=== PATIENT | female | born 1940 | race Caucasian/White ===

== ENCOUNTER 2022-10-01 16:12 | Outpatient (OUT) | payer MEDICARE, OTHER, SELFPAY ==
[2022-10-01 16:39] LABS: Basophils Percent Auto 0.6 % (0.2-2.0); Eosinophils Percent Auto 0.6 % (0.9-7.0); Hematocrit 33.5 % (36.0-48.0); Hemoglobin 10.8 g/dL (12.0-16.0); Immature Granulocytes Abs Auto 0.01 10^3/uL (0.00-0.03); Immature Granulocytes Pct Auto 0.3 % (0.0-0.5); Lymphocytes Absolute Auto 1.1 10^3/uL (1.2-3.8); Lymphocytes Percent Auto 30.3 % (20.5-60.0); Mean Corpuscular HGB Conc 32.2 g/dL (29.9-35.2); Mean Corpuscular Hemoglobin 30.7 pg (26.7-34.0); Mean Corpuscular Volume 95.2 fL (81.0-99.0); Mean Platelet Volume 10.1 fL (9.5-13.5); Monocytes Absolute Auto 0.3 10^3/uL (0.3-0.8); Monocytes Percent Auto 8.4 % (1.7-12.0); Neutrophils Absolute Auto 2.1 10^3/uL (1.4-6.5); Neutrophils Percent Auto 59.8 % (43.0-75.0); Platelet Count 123 10^3/uL (150-450); Red Blood Count 3.52 10^6/uL (4.20-5.40); Red Cell Distribution Width 11.8 % (11.0-15.0); White Blood Count 3.6 10^3/uL (4.0-11.0)
[2022-10-01 16:52] LABS: Estimated GFR (African America 53 (>=60); Estimated GFR (Non-African Ame 44 (>=60)
[2022-10-01 16:57] LABS: Erythrocyte Sedimentation Rate 14 mm/hr (<=30)
[2022-10-01 17:03] LABS: Bilirubin Urine NEGATIVE (NEGATIVE); Blood Urine NEGATIVE (NEGATIVE); Clarity Urine CLEAR (CLEAR); Color Urine YELLOW (YELLOW); Glucose Urine UA NEGATIVE (NEGATIVE); Ketones Urine NEGATIVE (NEGATIVE); Leukocyte Esterase Urine NEGATIVE (NEGATIVE); Nitrite Urine NEGATIVE (NEGATIVE); Protein Urine NEGATIVE (NEG/TRACE); Specific Gravity Urine 1.015 (1.005-1.025); Urobilinogen Urine 0.2 EU/dL (0.2-1.0); pH Urine 6.5 (5.0-9.0)
[2022-10-01 17:23] LABS: Bacteria Urine NONE SEEN #/HPF (NONE SEEN); Cast Seen? NONE SEEN #/LPF (NONE SEEN); Crystals Seen? None Seen #/HPF (None Seen); Mucus Urine NONE SEEN (NONE SEEN); RBC Urine NONE SEEN #/HPF (0-2); Squamous Epithelial Cell Urine FEW #/LPF (NONE/RARE); Urine Culture Indicated NO; WBC Urine NONE SEEN #/HPF (NONE SEEN)
== END 2022-10-01 16:13 | disposition home or self-care (01) ==
LOC: LAB 16:18
PROVIDERS: PCP Family Medicine
DX: R76.0 Raised antibody titer (principal); R63.4 Abnormal weight loss
CPT/HCPCS: 36415; 81001; 82565; 85025; 85652

== ENCOUNTER 2023-01-05 15:47 | Outpatient (OUT) | payer MEDICARE, OTHER, SELFPAY ==
[2023-01-05 16:18] LABS: Bilirubin Urine NEGATIVE (NEGATIVE); Blood Urine NEGATIVE (NEGATIVE); Clarity Urine CLEAR (CLEAR); Color Urine LT. YELLOW (YELLOW); Glucose Urine UA NEGATIVE (NEGATIVE); Ketones Urine NEGATIVE (NEGATIVE); Leukocyte Esterase Urine NEGATIVE (NEGATIVE); Nitrite Urine NEGATIVE (NEGATIVE); Protein Urine NEGATIVE (NEG/TRACE); Urobilinogen Urine 0.2 EU/dL (0.2-1.0)
[2023-01-05 16:20] LABS: Basophils Percent Auto 0.7 % (0.2-2.0); Eosinophils Percent Auto 0.9 % (0.9-7.0); Hematocrit 35.4 % (36.0-48.0); Hemoglobin 11.6 g/dL (12.0-16.0); Immature Granulocytes Abs Auto 0.01 10^3/uL (0.00-0.03); Immature Granulocytes Pct Auto 0.2 % (0.0-0.5); Lymphocytes Absolute Auto 1.3 10^3/uL (1.2-3.8); Lymphocytes Percent Auto 28.8 % (20.5-60.0); Mean Corpuscular HGB Conc 32.8 g/dL (29.9-35.2); Mean Corpuscular Hemoglobin 31.2 pg (26.7-34.0); Mean Corpuscular Volume 95.2 fL (81.0-99.0); Mean Platelet Volume 10.1 fL (9.5-13.5); Monocytes Absolute Auto 0.3 10^3/uL (0.3-0.8); Monocytes Percent Auto 6.5 % (1.7-12.0); Neutrophils Absolute Auto 2.7 10^3/uL (1.4-6.5); Neutrophils Percent Auto 62.9 % (43.0-75.0); Platelet Count 137 10^3/uL (150-450); Red Blood Count 3.72 10^6/uL (4.20-5.40); Red Cell Distribution Width 11.7 % (11.0-15.0); White Blood Count 4.3 10^3/uL (4.0-11.0)
[2023-01-05 16:21] LABS: Erythrocyte Sedimentation Rate 9 mm/hr (<=30)
[2023-01-05 16:24] LABS: Bacteria Urine NONE SEEN #/HPF (NONE SEEN); Mucus Urine NONE SEEN (NONE SEEN); RBC Urine 0-2 #/HPF (0-2); WBC Urine NONE SEEN #/HPF (NONE SEEN)
[2023-01-05 16:25] LABS: Cast Seen? NONE SEEN #/LPF (NONE SEEN); Crystals Seen? None Seen #/HPF (None Seen); Squamous Epithelial Cell Urine NONE SEEN #/LPF (NONE/RARE); Urine Culture Indicated NO
[2023-01-05 16:41] LABS: Estimated GFR (African America 60 (>=60); Estimated GFR (Non-African Ame 49 (>=60)
== END 2023-01-05 15:48 | disposition home or self-care (01) ==
LOC: LAB 15:49
PROVIDERS: PCP Family Medicine; Visit Provider Internal Medicine Rheumatology
DX: R76.0 Raised antibody titer (principal); R63.4 Abnormal weight loss
CPT/HCPCS: 36415; 81001; 82565; 85025; 85652

== ENCOUNTER 2023-04-08 14:25 | Outpatient (OUT) | payer MEDICARE, OTHER, SELFPAY ==
[2023-04-08 14:53] LABS: Basophils Percent Auto 0.7 % (0.2-2.0); Eosinophils Percent Auto 0.9 % (0.9-7.0); Hematocrit 35.6 % (36.0-48.0); Hemoglobin 11.8 g/dL (12.0-16.0); Immature Granulocytes Abs Auto 0.01 10^3/uL (0.00-0.03); Immature Granulocytes Pct Auto 0.2 % (0.0-0.5); Lymphocytes Absolute Auto 1.2 10^3/uL (1.2-3.8); Lymphocytes Percent Auto 27.8 % (20.5-60.0); Mean Corpuscular HGB Conc 33.1 g/dL (29.9-35.2); Mean Corpuscular Volume 93.4 fL (81.0-99.0); Mean Platelet Volume 9.3 fL (9.5-13.5); Monocytes Absolute Auto 0.3 10^3/uL (0.3-0.8); Monocytes Percent Auto 5.8 % (1.7-12.0); Neutrophils Absolute Auto 2.8 10^3/uL (1.4-6.5); Neutrophils Percent Auto 64.6 % (43.0-75.0); Platelet Count 151 10^3/uL (150-450); Red Blood Count 3.81 10^6/uL (4.20-5.40); Red Cell Distribution Width 11.7 % (11.0-15.0); White Blood Count 4.3 10^3/uL (4.0-11.0)
[2023-04-08 14:59] LABS: Erythrocyte Sedimentation Rate 26 mm/hr (<=30)
[2023-04-08 15:53] LABS: Alanine Aminotransferase 25 U/L (14-59); Albumin Level 3.6 g/dL (3.4-5.0); Alkaline Phosphatase 91 U/L (46-116); Aspartate Amino Transferase 20 U/L (15-37); Bilirubin Direct 0.1 mg/dL (0.0-0.2); Bilirubin Total 0.4 mg/dL (0.2-1.0); Estimated GFR (African America 53 (>=60); Estimated GFR (Non-African Ame 44 (>=60); Globulin 3.7 g/dL; Total Protein 7.3 g/dL (6.4-8.2)
== END 2023-04-08 14:26 | disposition home or self-care (01) ==
LOC: LAB 14:28
PROVIDERS: PCP Family Medicine; Visit Provider Internal Medicine Rheumatology
DX: Z79.899 Other long term (current) drug therapy (principal); M06.4 Inflammatory polyarthropathy; M31.30 Wegener's granulomatosis without renal involvement; R76.0 Raised antibody titer
CPT/HCPCS: 36415; 80076; 82565; 85025; 85652

== ENCOUNTER 2023-08-12 15:46 | Outpatient (OUT) | payer MEDICARE, OTHER, SELFPAY ==
--- OUTSIDE RECORDS SUMMARY | 2023-08-12 16:03 | XMS_ITS | CCD ---
Author Organization [facility] Care Team Providers Care Supply Chain Intern Name Role Phone EWDIN, DR FRANK Admitting Unavailable HALADAY, DR FRANK Attending Unavailable NADERER, DR TYLER Marinelli Primary Care Unavailable HALADAY, DR FRANK Consulting Unavailable HALADAY, DR FRANK Admitting Unavailable HALADAY, DR FRANK Attending Unavailable NADERER, DR TYLER Marinelli Primary Care Unavailable HALADAY, DR FRANK Consulting Unavailable HALADAY, DR FRANK Admitting Unavailable HALADAY, DR FRANK Attending Unavailable NADERER, DR TYLER Marinelli Primary Care Unavailable HALADAY, DR FRANK Consulting Unavailable HALADAY, DR FRANK Admitting Unavailable HALADAY, DR FRANK Attending Unavailable NADERER, DR TYLER Marinelli Primary Care Unavailable HALADAY, DR FRANK Consulting Unavailable HALADAY, DR FRANK Admitting Unavailable HALADAY, DR FRANK Attending Unavailable NADERER, DR TYLER Marinelli Primary Care Unavailable HALADAY, DR FRANK Consulting Unavailable HALADAY, DR FRANK Admitting Unavailable HALADAY, DR FRANK Attending Unavailable NADERER, DR TYLER Marinelli Primary Care Unavailable HALADAY, DR FRANK Consulting Unavailable NADERER, DR TYLER Marinelli Admitting Unavailable NADERER, DR TYLER Marinelli Attending Unavailable NADERER, DR TYLER Marinelli Primary Care Unavailable NADERER, DR TYLER Marinelli Consulting Unavailable MD Tyler Velazquez Primary Care Provider [phone] MD Monika Pineda Attending Provider TYLER VELAZQUEZ Attending Unavailable MD Tyler Velazquez Primary Care Provider [phone] MD Monika Pineda Attending Provider [phone] Tyler Velazquez Primary Care Unavailable Edwin, Monika Attending Unavailable Haladaiker, Monika Admitting Unavailable Haladay, Monika Attending Unavailable Haladay, Monika Admitting Unavailable NadTyler tavares Primary Care Unavailable Problems Active Problems Problem Classification Problem Date Documented Date Episodic/Chronic Deficiency and other anemia (1 source) Other pancytopenia; Translations: [Other pancytopenia] Onset: 10-15-2022 Chronic Immunizations and screening for infectious disease (4 sources) Raised antibody titer; Translations: [RAISED ANTIBODY TITER] Onset: 07-02-2022 Episodic Nutritional deficiencies (1 source) Vitamin D deficiency, unspecified; Translations: [VITAMIN D DEFICIENCY UNSPECIFIED] Onset: 08-21-2021 Chronic Other aftercare (5 sources) Other petroleum terminal plant operator (current) drug therapy; 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] Onset: 08-18-2021 Episodic Other circulatory disease (4 sources) Arteritis, unspecified; Translations: [ARTERITIS UNSPECIFIED] Onset: 12-12-2021 Chronic Other nutritional; endocrine; and metabolic disorders (1 source) Abnormal weight loss; Translations: [ABNORMAL WEIGHT LOSS] Onset: 07-11-2022 Episodic Rheumatoid arthritis and related disease (5 sources) Inflammatory polyarthropathy; Translations: [INFLAMMATORY POLYARTHROPATHY] Onset: 04-02-2022 Chronic Systemic lupus erythematosus and connective tissue disorders (2 sources) 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; Translations: [WEGENERS GRANULOMATOSIS W/O RENL] Onset: 07-11-2022 Chronic Past or Other Problems Problem Classification Problem Date Documented Da te Episodic/Chronic Other screening for suspected conditions (not mental disorders or infectious disease) (1 source) Encounter for screening for lipoid disorders; Translations: [ENC SCREENING FOR LIPOID DISORDERS] Onset: 08-21-2021 Episodic Results Test Name Value Interpretation Reference Range Facility Automated erythrocytes count in urine sediment (number/area)Ordered By: Monika Pineda on 05-12-2023 RBC Auto (Urine sed) [#/Area] 0-1 [HPF] 0-4 [facility] Automated leukocytes count i n urine sediment (number/area)Ordered By: Monika Pineda on 05-12-2023 WBC Auto (Urine sed) [#/Area] None seen [HPF] 0-4 [facility] Bilirubin Test strip Ql (U)O rdered By: Monika Pineda on 05-12-2023 Bilirubin Ql (U) Negative Negative [facility] Color Auto (U)Ordered By: Amalia Pineda on 05-12-2023 Color (U) Yellow Yellow [facility] Dipstick and Microscopicon 0 05-12-2023 Appearance (U) Clear Normal Clear [facility] Comment on above: Order Comment: Name Collection Type:: Clean-Voided Midstream Performed By: #### A DDONUAPLUS #### [facility] [address] [id number] [place] Bacteria,Urine None Seen Normal None Seen [facility] Comment on above: Order Comment: Name Collection Type:: Clean-Voided Midstream Performed By: #### A DDONUAPLUS #### [facility] [address] [place] [address] [place] Bilirubin,Urine Negative Normal Negative [facility] Comment on above: Order Comment: Name Collection Type:: Clean-Voided Midstream Performed By: #### A DDONUAPLUS #### [place] [address] [place] Color (U) Yellow Normal [facility] Comment on above: Order Comment: Name Collection Type:: Clean-Voided Midstream Performed By: #### A DDONUAPLUS #### [facility] [address] [place] [address] [place] Glucose Ql (U) Normal Normal Normal [facility] Comment on above: Order Comment: Name Collection Type:: Clean-Voided Midstream Performed By: #### A DDONUAPLUS #### [place] [address] [place] Hyaline Casts,Urine None Seen Normal 0-8 [facility] Comment on above: Order Comment: Name Collection Type:: Clean-Voided Midstream Result Comment: PERF ORMED BY: [place] [address] PATHOLOGIST CLIENT EXPERIENCE CONSULTANT CHEMA DANIELLE M.D. Performed By: #### A DDONUAPLUS #### [facility] [address] [place] [address] [place] Ketones Ql (U) Negative Normal Negative [facility] Comment on above: Order Comment: Name Collection Type:: Clean-Voided Midstream Performed By: #### A DDONUAPLUS #### [facility] [address] [place] [address] Leukocyte esterase Test strip Ql (U) Negative Normal Negative [facility] Comment on above: Order Comment: Name Collection Type:: Clean-Voided Midstream Performed By: #### A DDONUAPLUS #### [address] Nitrite,Urine Negative Normal Negative [facility] Comment on above: Order Comment: Name Collection Type:: Clean-Voided Midstream Performed By: #### A DDONUAPLUS #### [address] Occult Blood,Urine Negative Normal Negative [facility] Comment on above: Order Comment: Name Collection Type:: Clean-Voided Midstream Performed By: #### A DDONUAPLUS #### [address] pH (U) 7.5 [pH] Normal 5.0-9.0 [facility] Comment on above: Order Comment: Name Collection Type:: Clean-Voided Midstream Performed By: #### A DDONUAPLUS #### [address] Protein,Urine Negative Normal Negative [facility] Comment on above: Order Comment: Name Collection Type:: Clean-Voided Midstream Performed By: #### A DDONUAPLUS #### [facility] [address] [place] [address] RBC LM.HPF (Urine sed) [#/Area] 0 /[HPF] Normal 0-4 [facility] Comment on above: Order Comment: Name Collection Type:: Clean-Voided Midstream Performed By: #### A DDONUAPLUS #### [facility] [address] [place] [address] [place] Specificy [place],Urine 1.013 Normal 1.001-1.030 [facility] Comment on above: Order Comment: Name Collection Type:: Clean-Voided Midstream Performed By: #### A DDONUAPLUS #### [address] Squamous Epithelial Cell,Urine None Seen Normal 0-2 [facility] Comment on above: Order Comment: Name Collection Type:: Clean-Voided Midstream Performed By: #### A DDONUAPLUS #### [facility] [address] Urobilinogen,Urine Normal Normal Normal [facility] Comment on above: Order Comment: Name Collection Type:: Clean-Voided Midstream Performed By: #### A DDONUAPLUS #### [facility] [address] WBC,Urine None Seen Normal 0-4 [facility] Comment on above: Order Comment: Name Collection Type:: Clean-Voided Midstream Performed By: #### A DDONUAPLUS #### [facility] [address] Ketones Auto test strip (U) [Mass/Vol]Ordered By: Monika Pineda on 05-12-2023 Ketones (U) [Mass/Vol] Negative Negative [facility] - UrinalysisOrder ed By: Monika Pineda on 05-12-2023 Hyaline casts LM Ql (Urine sed) None seen [LPF] 0-8 [facility] Nitrite Test strip Ql (U)Ord ered By: Monika Pineda on 05-12-2023 Nitrite Ql (U) Negative Negative [facility] Protein Auto test strip (U) [Mass/Vol]Ordered By: Monika Pineda on 05-12-2023 Protein (U) [Mass/Vol] Negative Negative [facility] Specific gravity Auto test s trip (U) [Rel density]Ordered By: Monika Pineda on 05-12-2023 Specific gravity (U) [Rel density] 1.013 1.001-1.030 [facility] Squamous epithelial cells de tection in urine sediment by light microscopyOrdered By: Monika Pineda on 05-12-2023 Epithelial cells.squamous LM Ql (Urine sed) None seen [HPF] 0-2 [facility] Urine bacteria detection by automated methodOrdered By: Monika Pineda on 05-12-2023 Bacteria Auto Ql (U) None seen None Seen [facility] Urine clarity by refractomet ry automatedOrdered By: Monika Pineda on 05-12-2023 Clarity Refractometry automated (U) Clear Clear [facility] Urine glucose measurement by automated test strip (mass/volume)Ordered By: Monika Pnieda on 05-12-2023 Glucose Auto test strip (U) [Mass/Vol] Normal mg/dL Normal [facility] Urine hemoglobin detection b y automated test stripOrdered By: Monika Pineda on 05-12-2023 Hemoglobin Auto test strip Ql (U) Negative Negative [facility] Urine leukocyte esterase det ection by automated test stripOrdered By: Monika Pineda on 05-12-2023 Leukocyte esterase Auto test strip Ql (U) Negative Negative [facility] Urobilinogen Auto test strip (U) [Mass/Vol]Ordered By: Monika Pineda on 05-12-2023 Urobilinogen (U) [Mass/Vol] Normal mg/dL Normal [facility] pH Auto test strip (U)Ordere d By: Monika Pineda on 05-12-2023 pH (U) 7.5 [pH] 5.0-9.0 [facility] XIOMARA Antinuclear Antibodieson 10-15-2022 Antinuclear Abs, IFA Negative Normal . [facility] Comment on above: Result Comment: Nega tive <1:80 Borderline 1:80 Positive >1:80 ICAP nomenclature: AC-0 For more information about Hep-2 cell patterns use ANApatterns.org, the official website for the International Consensus on Antinuclear Antibody (XIOMARA) Patterns (ICAP). Performed at: [employer] [id number] [employer] Mixer: Carloz Juárez PhD, Phone: [phone] Performed By: #### A DNA, XIOMARA #### [facility] , Anti-dsDNA(DBL)Abon 10-16-19 Anti-dsDNA(DBL)Ab 3 Normal 0-9 [facility] Comment on above: Result Comment: Nega tive <5 Equivocal 5 - 9 Positive >9 Performed at: [facility] [employer] [id number] [employer]er: Carloz Juárez PhD, Phone: [phone] PERFORMED BY: [address] [address] PATHOLOGIST CLIENT EXPERIENCE CONSULTANT CHEMA DANIELLE M.D. Performed By: #### A DNA, XIOMARA #### [facility] , Lupus Anticoagulant Compon 0 10-15-2022 Dilute Prothrombin Time (dPt) 31.2 Normal 0.0-47.6 [facility] Comment on above: Performed By: #### L UPANTCOAG #### [facility] , dPT Confirm Ratio 0.95 Normal 0.00-1.34 [facility] Comment on above: Performed By: #### L UPANTCOAG #### [facility] , DRVVT Lupus 31.3 Normal 0.0-47.0 [facility] Comment on above: Performed By: #### L UPANTCOAG #### [facility] , Interpretation Comment: Normal . [facility] Comment on above: Result Comment: No l upus anticoagulant was detected. Performed at: - [facility] [id number] [employer]: Marlen Cameron MD, Phone: [phone] PERFORMED BY: [address] [address] PATHOLOGIST CLIENT EXPERIENCE CONSULTANT CHEMA DANIELLE M.D. Performed By: #### L UPANTCOAG #### [facility] , PTT-LA 31.4 Normal 0.0-43.5 [facility] Comment on above: Performed By: #### L UPANTCOAG #### [facility] , Thrombin Time 17.2 Normal 0.0-23.0 [facility] Comment on above: Performed By: #### L UPANTCOAG #### [facility] , CBC AUTO DIFFon 07-02-2022 BASO # 0.0 103/ul Normal 0.0-0.1 [facility] Comment on above: Performed By: #### C BC #### [facility] [address] [place] [address] Dr. Sharon Reed Basophils/100 WBC (Bld) 0.5 % Normal 0.2-2.0 [facility] Comment on above: Performed By: #### C BC #### [facility] [address] [place] [address] Dr. Sharon Reed EO # 0.0 103/ul Normal 0.0-0.7 [facility] Comment on above: Performed By: #### C BC #### [facility] [address] [place] [address] Dr. Sharon Reed Eosinophils/100 WBC (Bld) 0.7 % Critically low 0.9-7.0 [facility] Comment on above: Performed By: #### C BC #### [facility] [address] [place] [address] Dr. Sharon Reed Erythrocyte distribution width (RBC) [Ratio] 11.4 % Normal 11.0-15.0 [facility] Comment on above: Performed By: #### C BC #### [facility] [address] [place] [address] Dr. Sharon Reed Hematocrit (Bld) [Volume fraction] 35.8 % Critically low 36.0-48.0 [facility] Comment on above: Performed By: #### C BC #### [facility] [address] [place] [address] Dr. Sharon Reed Hemoglobin (Bld) [Mass/Vol] 12.1 g/dL Normal 12.0-16.0 [facility] Comment on above: Performed By: #### C BC #### [facility] [address] [place] [address] Dr. Sharon Reed IG # 0.01 10e3/ul Normal 0.00-0.03 [facility] Comment on above: Performed By: #### C BC #### [facility] [address] [place] [address] Dr. Sharon Reed IG % 0.2 % Normal 0.0-0.5 [facility] Comment on above: Performed By: #### C BC #### [facility] [address] [place] [address] Dr. Sharon Reed LYMPH # 1.2 103/ul Normal 1.2-3.8 [facility] Comment on above: Performed By: #### C BC #### [facility] [address] [place] [address] Dr. Sharon Reed Lymphocytes/100 WBC (Bld) 29.4 % Normal 20.5-60.0 [facility] Comment on above: Performed By: #### C BC #### [facility] [address] [place] [address] Dr. Sharon Reed MANUAL DIFF REQ NO Normal [facility] Comment on above: Performed By: #### C BC #### [facility] [address] [place] [address] Dr. Sharon Reed MCH (RBC) [Entitic mass] 31.1 pg Normal 26.7-34.0 [facility] Comment on above: Performed By: #### C BC #### [facility] [address] [place] [address] Dr. Sharon Reed MCHC (RBC) [Mass/Vol] 33.8 g/dL Normal 29.9-35.2 [facility] Comment on above: Performed By: #### C BC #### [facility] [address] [place] [address] Dr. Sharon Reed MCV (RBC) [Entitic vol] 92.0 fL Normal 81.0-99.0 [facility] Comment on above: Performed By: #### C BC #### [facility] [address] [place] [address] Dr. Sharno Reed MONO # 0.3 103/ul Normal 0.3-0.8 [facility] Comment on above: Performed By: #### C BC #### [facility] [address] [place] [address] Dr. Sharon Reed Monocytes/100 WBC (Bld) 6.6 % Normal 1.7-12.0 [facility] Comment on above: Performed By: #### C BC #### [facility] [address] [address] [address] Sharon Reed NEUT # 2.6 103/ul Normal 1.4-6.5 [facility] Comment on above: Performed By: #### C BC #### [facility] [address] [place] [address] Dr. Sharon Reed Neutrophils/100 WBC (Bld) 62.6 % Normal 43.0-75.0 [facility] Comment on above: Performed By: #### C BC #### [facility] [address] [place] [address] Dr. Sharon Reed Platelet mean volume (Bld) [Entitic vol] 9.7 fL Normal 9.5-13.5 [facility] Comment on above: Performed By: #### C BC #### [facility] [address] [place] [address] Dr. Sharon Reed PLT 128 103/ul Critically low 150-450 [facility] Comment on above: Performed By: #### C BC #### [facility] [address] [place] [address] Dr. Sharon Reed RBC 3.89 106/ul Critically low 4.20-5.[address] [facility] Comment on above: Performed By: #### C BC #### [facility] [address] [place] [address] Dr. Sharon Reed WBC 4.1 103/ul Normal 4.0-11.0 [facility] Comment on above: Performed By: #### C BC #### [facility] [address] [place] [address] Dr. Sharon Reed CREATININEon 07-02-2022 Creatinine [Mass/Vol] 1.00 mg/dL Normal 0.55-1.02 [facility] Comment on above: Performed By: #### C MITRA #### [facility] [address] [place] [address] Dr. Sharon Reed EGFR-AF SAO TOMEAN >60 Normal >=60 [facility] Comment on above: Performed By: #### C MITRA #### [facility] [address] [place] [address] Dr. Sharon Reed EGFR-NON AF SAO TOMEAN 53 mL/min/1.73m2 Critically low >=60 [facility] Comment on above: Performed By: #### C MITRA #### [facility] [address] [place] [address] Dr. Sharon Reed SED RATE WESTERGRENon 2022 SED RATE 11 mm/hr Normal <=30 [facility] Comment on above: Performed By: #### S EDR #### [facility] [address] [place] [address] Dr. Sharon Reed UA RANDOM W/MICROSCOPICon BACTERIA NONE SEEN Normal NONE SEEN [facility] Comment on above: Performed By: #### S EDR #### [facility] [address] [place] [address] Dr. Sharon Reed Bilirubin Ql (U) Negative Normal NEGATIVE [facility] Comment on above: Performed By: #### S EDR #### [facility] [address] [place] [address] Dr. Sharon Reed CAST NONE SEEN Normal NONE SEEN [facility] Comment on above: Performed By: #### S EDR #### [facility] [address] [place] [address] Dr. Sharon Reed Clarity (U) CLEAR Normal CLEAR [facility] Comment on above: Performed By: #### S EDR #### [facility] [address] [place] [address] Dr. Sharon Reed Color (U) LT. YELLOW Normal YELLOW [facility] Comment on above: Performed By: #### S EDR #### [facility] [address] [place] [address] Dr. Sharon Reed Crystals LM Nom (Urine sed) NONE SEEN Normal NONE SEEN [facility] Comment on above: Performed By: #### S EDR #### [facility] [address] [place] [address] Dr. Sharon Reed Epithelial cells LM Ql (Urine sed) NONE SEEN Normal NONE SEEN /RARE [facility] Comment on above: Performed By: #### S EDR #### [facility] [address] [address] [address] Sharon Reed Glucose Ql (U) Negative Normal NEGATIVE [facility] Comment on above: Performed By: #### S EDR #### [facility] [address] [address] [address] Sharon Reed Hemoglobin Ql (U) Negative Normal NEGATIVE [facility] Comment on above: Performed By: #### S EDR #### [facility] [address] [address] [address] Sharon Reed Ketones Ql (U) Negative Normal NEGATIVE [facility] Comment on above: Performed By: #### S EDR #### [facility] [address] [place] [address] Dr. Sharon Reed LEUKOCYTES Negative Normal NEGATIVE [facility] Comment on above: Performed By: #### S EDR #### [facility] [address] [place] [address] Dr. Sharon Reed MUCOUS NONE SEEN Normal NONE SEEN [facility] Comment on above: Performed By: #### S EDR #### [facility] [address] [place] [address] Dr. Sharon Reed Nitrite Ql (U) Negative Normal NEGATIVE [facility] Comment on above: Performed By: #### S EDR #### [facility] [address] [place] [address] Dr. Sharon Reed pH (U) 7.5 [pH] Normal 5-9 [facility] Comment on above: Performed By: #### S EDR #### [facility] [address] [place] [address] Dr. Sharon Reed RBC 0-2 Normal 0-2 [facility] Comment on above: Performed By: #### S EDR #### [facility] [address] [place] [address] Dr. Sharon Reed SPEC GRAVITY <=1.005 Abnormal 1.005-<=1.025 [facility] Comment on above: Performed By: #### S EDR #### [facility] [address] [place] [address] Dr. Sharon Reed UA PROTEIN Negative Normal NEGATIVE/ TRACE [facility] Comment on above: Performed By: #### S EDR #### [facility] [address] [place] [address] Dr. Sharon Reed Urobilinogen Qn (U) 0.2 {Jayla'U}/dL Normal 0.2 - 1. 0 [facility] Comment on above: Performed By: #### S EDR #### [facility] [address] [place] [address] Dr. Sharon Reed WBC NONE SEEN Normal NONE SEEN [facility] Comment on above: Performed By: #### S EDR #### [facility] [address] [place] [address] Dr. Sharon Reed CREATININEon 04-02-2022 Creatinine [Mass/Vol] 1.14 mg/dL Critically high 0.55-1.02 [facility] Comment on above: Performed By: #### C MITRA #### [facility] [address] [place] [address] Dr. Sharon Reed EGFR-AF SAO TOMEAN 56 mL/min/1.73m2 Critically low >=60 [facility] Comment on above: Performed By: #### C MITRA #### [facility] [address] [place] [address] Dr. Sharon Reed EGFR-NON AF SAO TOMEAN 46 mL/min/1.73m2 Critically low >=60 [facility] Comment on above: Performed By: #### C MITRA #### [facility] [address] [place] [address] Dr. Sharon Reed SED RATE WESTERGRENon 2022 SED RATE 12 mm/hr Normal <=30 [facility] Comment on above: Performed By: #### C MITRA #### [facility] [address] [place] [address] Dr. Sharon Reed UA RANDOMon 04-02-2022 Bilirubin Ql (U) Negative Normal NEGATIVE [facility] Comment on above: Performed By: #### C MITRA #### [facility] [address] [place] [address] Dr. Sharon Reed Clarity (U) CLEAR Normal CLEAR [facility] Comment on above: Performed By: #### C MITRA #### [facility] [address] [address] [address] Sharon Reed Color (U) LT. YELLOW Normal YELLOW [facility] Comment on above: Performed By: #### C MITRA #### [facility] [address] [place] [address] Dr. Sharon Reed Glucose Ql (U) Negative Normal NEGATIVE [facility] Comment on above: Performed By: #### C MITRA #### [facility] [address] [place] [address] Dr. Sharon Reed Hemoglobin Ql (U) Negative Normal NEGATIVE [facility] Comment on above: Performed By: #### C MITRA #### [facility] [address] [place] [address] Dr. Sharon Reed Ketones Ql (U) Negative Normal NEGATIVE [facility] Comment on above: Performed By: #### C MITRA #### [facility] [address] [place] [address] Dr. Sharon Reed LEUKOCYTES Negative Normal NEGATIVE [facility] Comment on above: Performed By: #### C MITRA #### [facility] [address] [place] [address] Dr. Sharon Reed Nitrite Ql (U) Negative Normal NEGATIVE [facility] Comment on above: Performed By: #### C MITRA #### [facility] [address] [place], [place] [address] Dr. Sharon Reed pH (U) 7.0 [pH] Normal 5-9 [facility] Comment on above: Performed By: #### C MITRA #### [facility] [address] [place] [address] Dr. Sharon Reed SPEC GRAVITY 1.010 Normal 1.005-<=1.025 [facility] Comment on above: Performed By: #### C MITRA #### [facility] [address] [place] [address] Dr. Sharon Reed UA PROTEIN Negative Normal NEGATIVE/ TRACE [facility] Comment on above: Performed By: #### C MITRA #### [facility] [address] [place] [address] Dr. Sharon Reed Urobilinogen Qn (U) 0.2 {Jayla'U}/dL Normal 0.2 - 1. 0 [facility] Comment on above: Performed By: #### C MITRA #### [facility] [address] [place] [address] Dr. Sharon Reed CREATININEon 02-05-2022 Creatinine [Mass/Vol] 1.07 mg/dL Critically high 0.55-1.02 [facility] Comment on above: Performed By: #### C MITRA #### [facility] [address] [place] [address] Dr. Sharon Reed EGFR-AF SAO TOMEAN 60 mL/min/1.73m2 Normal >=60 [facility] Comment on above: Performed By: #### C MITRA #### [facility] [address] [place] [address] Dr. Sharon Reed EGFR-NON AF SAO TOMEAN 49 mL/min/1.73m2 Critically low >=60 [facility] Comment on above: Performed By: #### C MITRA #### [facility] [address] [place] [address] Dr. Sharon Reed [facility] 11 mm/hr Normal <=30 [facility] Comment on above: Performed By: #### S EDR #### [facility] [address] [place] [address] Dr. Sharon Reed UA RANDOMon 02-05-2022 Bilirubin Ql (U) Negative Normal NEGATIVE [facility] Comment on above: Performed By: #### S EDR #### [facility] [address] [place] [address] Dr. Sharon Reed Clarity (U) CLEAR Normal CLEAR [facility] Comment on above: Performed By: #### S EDR #### [facility] [address] [place] [address] Dr. Sharon Reed Color (U) YELLOW Normal YELLOW [facility] Comment on above: Performed By: #### S EDR #### [facility] [address] [address] [address] Sharon Reed Glucose Ql (U) Negative Normal NEGATIVE [facility] Comment on above: Performed By: #### S EDR #### [facility] [address] [address] [address] Sharon Reed Hemoglobin Ql (U) Negative Normal NEGATIVE [facility] Comment on above: Performed By: #### S EDR #### [facility] [address] [address] [address] Sharon Reed Ketones Ql (U) Negative Normal NEGATIVE [facility] Comment on above: Performed By: #### S EDR #### [facility] [address] [place] [address] Dr. Sharon Reed LEUKOCYTES Negative Normal NEGATIVE [facility] Comment on above: Performed By: #### S EDR #### [facility] [address] [place] [address] Dr. Sharon Reed Nitrite Ql (U) Negative Normal NEGATIVE [facility] Comment on above: Performed By: #### S EDR #### [facility] [address] [address] [address] Sharon Reed pH (U) 6.5 [pH] Normal 5-9 [facility] Comment on above: Performed By: #### S EDR #### [facility] [address] [place] [address] Dr. Sharon Reed SPEC GRAVITY 1.015 Normal 1.005-<=1.[address] [facility] Comment on above: Performed By: #### S EDR #### [facility] [address] [place] [address] Dr. Sharon Reed UA PROTEIN Negative Normal NEGATIVE/ TRACE [facility] Comment on above: Performed By: #### S EDR #### [facility] [address] [place] [address] Dr. Sharon Reed Urobilinogen Qn (U) 0.2 {Jayla'U}/dL Normal 0.2 - 1. 0 [facility] Comment on above: Performed By: #### S EDR #### [facility] [address] [place] [address] Dr. Sharon Reed CREATININEon 12-12-2021 Creatinine [Mass/Vol] 1.17 mg/dL Critically high 0.55-1.02 [facility] Comment on above: Performed By: #### C MITRA #### [facility] [address] [place] [address] Dr. Sharon Reed EGFR-AF SAO TOMEAN 54 mL/min/1.73m2 Critically low >=60 [facility] Comment on above: Performed By: #### C MITRA #### [facility] [address] [place] [address] Dr. Sharon Reed EGFR-NON AF SAO TOMEAN 45 mL/min/1.73m2 Critically low >=60 [facility] Comment on above: Performed By: #### C MITRA #### [facility] [address] [place] [address] Dr. Sharon Reed SED RATE [facility] 2021 SED RATE 16 mm/hr Normal <=30 [facility] Comment on above: Performed By: #### C MITRA #### [facility] [address] [place] [address] Dr. Sharon Reed UA RANDOMon 12-12-2021 Bilirubin Ql (U) Negative Normal NEGATIVE [facility] Comment on above: Performed By: #### C MITRA #### [facility] [address] [place] [address] Dr. Sharon Reed Clarity (U) CLEAR Normal CLEAR [facility] Comment on above: Performed By: #### C MITRA #### [facility] [address] [place] [address] Dr. Sharon Reed Color (U) LT. YELLOW Normal YELLOW [facility] Comment on above: Performed By: #### C MITRA #### [facility] [address] [place] [address] Dr. Sharon Reed Glucose Ql (U) Negative Normal NEGATIVE [facility] Comment on above: Performed By: #### C MITRA #### [facility] [address] [place] [address] Dr. Sharon Reed Hemoglobin Ql (U) Negative Normal NEGATIVE [facility] Comment on above: Performed By: #### C MITRA #### [facility] [address] [place] [address] Dr. Sharon Reed Ketones Ql (U) Negative Normal NEGATIVE [facility] Comment on above: Performed By: #### C MITRA #### [facility] [address] [place] [address] Dr. Sharon Reed LEUKOCYTES TRACE Abnormal NEGATIVE [facility] Comment on above: Performed By: #### C MITRA #### [facility] [address] [place] [address] Dr. Sharon Reed Nitrite Ql (U) Negative Normal NEGATIVE [facility] Comment on above: Performed By: #### C MITRA #### [facility] [address] [place] [address] Dr. Sharon Reed pH (U) 6.0 [pH] Normal 5-9 [facility] Comment on above: Performed By: #### C MITRA #### [facility] [address] [place] [address] Dr. Sharon Reed SPEC GRAVITY 1.015 Normal 1.005-<=1.025 [facility] Comment on above: Performed By: #### C MITRA #### [facility] [address] [place] [address] Dr. Sharon Reed UA PROTEIN Negative Normal NEGATIVE/ TRACE [facility] Comment on above: Performed By: #### C MITRA #### [facility] [address] [place] [address] Dr. Sharon Reed Urobilinogen Qn (U) 0.2 {Jayla'U}/dL Normal 0.2 - 1. 0 [facility] Comment on above: Performed By: #### C MITRA #### [facility] [address] [place] [address] Dr. Sharon Reed CREATININEon 10-09-2021 Creatinine [Mass/Vol] 1.10 mg/dL Critically high 0.55-1.02 [facility] Comment on above: Performed By: #### S EDR #### [facility] [address] [place] [address] Dr. Sharon Reed EGFR-AF SAO TOMEAN 58 mL/min/1.73m2 Critically low >=60 [facility] Comment on above: Performed By: #### S EDR #### [facility] [address] [place] [address] Dr. Sharon Reed EGFR-NON AF SAO TOMEAN 48 mL/min/1.73m2 Critically low >=60 [facility] Comment on above: Performed By: #### S EDR #### [facility] [address] [place] [address] Dr. Sharon Reed [facility] 12 mm/hr Normal <=30 [facility] Comment on above: Performed By: #### C MITRA #### [facility] [address] [place] [address] Dr. Sharon Reed UA RANDOM W/MICROSCOPICon BACTERIA NONE SEEN Normal NONE SEEN [facility] Comment on above: Performed By: #### U AMIC #### [facility] [address] [place] [address] Dr. Sharon Reed Bilirubin Ql (U) Negative Normal NEGATIVE [facility] Comment on above: Performed By: #### U AMIC #### [facility] [address] [place] [address] Dr. Sharon Reed CAST NONE SEEN Normal NONE SEEN [facility] Comment on above: Performed By: #### U AMIC #### [facility] [address] [place] [address] Dr. Sharon Reed Clarity (U) CLEAR Normal CLEAR [facility] Comment on above: Performed By: #### U AMIC #### [facility] [address] [place] [address] Dr. Sharon Reed Color (U) LT. YELLOW Normal YELLOW [facility] Comment on above: Performed By: #### U AMIC #### [facility] [address] [place] [address] Dr. Sharon Reed Crystals LM Nom (Urine sed) NONE SEEN Normal NONE SEEN [facility] Comment on above: Performed By: #### U AMIC #### [facility] [address] [address] [address] Sharon Reed Epithelial cells LM Ql (Urine sed) RARE Normal NONE SEEN /RARE [facility] Comment on above: Performed By: #### U AMIC #### [facility] [address] [address] [address] Sharon Reed Glucose Ql (U) Negative Normal NEGATIVE [facility] Comment on above: Performed By: #### U AMIC #### [facility] [address] [address] [address] Sharon Reed Hemoglobin Ql (U) Negative Normal NEGATIVE [facility] Comment on above: Performed By: #### U AMIC #### [facility] [address] [place] [address] Dr. Sharon Reed Ketones Ql (U) Negative Normal NEGATIVE [facility] Comment on above: Performed By: #### U AMIC #### [facility] [address] [address] [address] Sharon Reed LEUKOCYTES Negative Normal NEGATIVE [facility] Comment on above: Performed By: #### U AMIC #### [facility] [address] [address] [address] Sharon Reed MUCOUS NONE SEEN Normal NONE SEEN [facility] Comment on above: Performed By: #### U AMIC #### [facility] [address] [address] [address] Sharon Reed Nitrite Ql (U) Negative Normal NEGATIVE [facility] Comment on above: Performed By: #### U AMIC #### [facility] [address] [address] [address] Sharon Reed pH (U) 7.0 [pH] Normal 5-9 [facility] Comment on above: Performed By: #### U AMIC #### [facility] [address] [place] [address] Dr. Sharon Reed RBC NONE SEEN Abnormal 0-2 [facility] Comment on above: Performed By: #### U AMIC #### [facility] [address] [address] [address] Sharon Reed SPEC GRAVITY <=1.005 Abnormal 1.005-<=1.[address] [facility] Comment on above: Performed By: #### U AMIC #### [facility] [address] [address] [address] Sharon Reed UA PROTEIN Negative Normal NEGATIVE/ TRACE [facility] Comment on above: Performed By: #### U AMIC #### [facility] [address] [address] [address] Sharon Reed Urobilinogen Qn (U) 0.2 {Jayla'U}/dL Normal 0.2 - 1. 0 [facility] Comment on above: Performed By: #### U AMIC #### [facility] [address] [place] [address] Dr. Sharon Reed WBC 0-2 Abnormal NONE SEEN [facility] Comment on above: Performed By: #### U AMIC #### [facility] [address] [place] [address] Dr. Sharon Reed CBC AUTO DIFFon 08-18-2021 BASO # 0.0 103/ul Normal 0.0-0.1 [facility] Comment on above: Performed By: #### C BC #### [facility] [address] [place] [address] Dr. Sharon Reed Basophils/100 WBC (Bld) 0.5 % Normal 0.2-2.0 [facility] Comment on above: Performed By: #### C BC #### [facility] [address] [place] [address] Dr. Sharon Reed EO # 0.0 103/ul Normal 0.0-0.7 [facility] Comment on above: Performed By: #### C BC #### [facility] [address] [place] [address] Dr. Sharon Reed Eosinophils/100 WBC (Bld) 0.8 % Critically low 0.9-7.0 [facility] Comment on above: Performed By: #### C BC #### [facility] [address] [place] [address] Dr. Sharon Reed Erythrocyte distribution width (RBC) [Ratio] 11.7 % Normal 11.0-15.0 [facility] Comment on above: Performed By: #### C BC #### [facility] [address] [place] [address] Dr. Sharon Reed Hematocrit (Bld) [Volume fraction] 36.6 % Normal 36.0-48.0 [facility] Comment on above: Performed By: #### C BC #### [facility] [address] [place] [address] Dr. Sharon Reed Hemoglobin (Bld) [Mass/Vol] 11.6 g/dL Critically low 12.0-16.0 [facility] Comment on above: Performed By: #### C BC #### [facility] [address] [place] [address] Dr. Sharon Reed IG # 0.01 10e3/ul Normal 0.00-0.03 [facility] Comment on above: Performed By: #### C BC #### [facility] [address] [place] [address] Dr. Sharon Reed IG % 0.3 % Normal 0.0-0.5 [facility] Comment on above: Performed By: #### C BC #### [facility] [address] [place] [address] Dr. Sharon Reed LYMPH # 1.1 103/ul Critically low 1.2-3.8 [facility] Comment on above: Performed By: #### C BC #### [facility] [address] [place] [address] Dr. Sharon Reed Lymphocytes/100 WBC (Bld) 28.3 % Normal 20.5-60.0 [facility] Comment on above: Performed By: #### C BC #### [facility] [address] [place] [address] Dr. Sharon Reed MANUAL DIFF REQ NO Normal [facility] Comment on above: Performed By: #### C BC #### [facility] [address] [place] [address] Dr. Sharon Reed MCH (RBC) [Entitic mass] 30.5 pg Normal 26.7-34.0 [facility] Comment on above: Performed By: #### C BC #### [facility] [address] [place] [address] Dr. Sharon Reed MCHC (RBC) [Mass/Vol] 31.7 g/dL Normal 29.9-35.2 [facility] Comment on above: Performed By: #### C BC #### [facility] [address] [place] [address] Dr. Sharon Reed MCV (RBC) [Entitic vol] 96.3 fL Normal 81.0-99.0 [facility] Comment on above: Performed By: #### C BC #### [facility] [address] [place] [address] Dr. Sharon Reed MONO # 0.4 103/ul Normal 0.3-0.8 [facility] Comment on above: Performed By: #### C BC #### [facility] [address] [place] [address] Dr. Sharon Reed Monocytes/100 WBC (Bld) 9.0 % Normal 1.7-12.0 [facility] Comment on above: Performed By: #### C BC #### [facility] [address] [place] [address] Dr. Sharon Reed NEUT # 2.4 103/ul Normal 1.4-6.5 [facility] Comment on above: Performed By: #### C BC #### [facility] [address] [place] [address] Dr. Sharon Reed Neutrophils/100 WBC (Bld) 61.1 % Normal 43.0-75.0 [facility] Comment on above: Performed By: #### C BC #### [facility] [address] [place] [address] Dr. Sharon Reed Platelet mean volume (Bld) [Entitic vol] 10.5 fL Normal 9.5-13.5 [facility] Comment on above: Performed By: #### C BC #### [facility] [address] [place] [address] Dr. Sharon Reed PLT 135 103/ul Critically low 150-450 [facility] Comment on above: Performed By: #### C BC #### [facility] [address] [address] [address] Sharon Reed RBC 3.80 106/ul Critically low 4.20-5.40 [facility] Comment on above: Performed By: #### C BC #### [facility] [address] [address] [address] Sharon Reed WBC 3.9 103/ul Critically low 4.0-11.0 [facility] Comment on above: Performed By: #### C BC #### [facility] [address] [address] [address] Sharon Reed LIPID PROFILEon 08-18-2021 CHOL-HDL RATIO NORM SEE BELOW Normal [facility] Comment on above: Result Comment: 3.3 - 4.4 LOW RISK 4.4 - 7.1 AVERAGE RISK 7.1 - 11.0 MODERATE RISK >11.0 HIGH RISK Performed By: #### C MITRA #### [facility] [address] [address] [address] Sharon Reed Cholesterol [Mass/Vol] 209 mg/dL Critically high <=200 [facility] Comment on above: Performed By: #### C MITRA #### [facility] [address] [address] [address] Sharon Reed Cholesterol in HDL [Mass/Vol] 83 mg/dL Critically high 40-60 [facility] Comment on above: Performed By: #### C MITRA #### [facility] [address] [address] [address] Sharon Reed Cholesterol in LDL [Mass/Vol] 108.2 mg/dL Normal [facility] Comment on above: Performed By: #### C MITRA #### [facility] [address] [address] [address] Sharon Reed Cholesterol.total/Chol esterol in HDL [Mass ratio] 2.5 {ratio} Normal [facility] Comment on above: Performed By: #### C MITRA #### [facility] [address] [address] [address] Sharon Reed HDL NORMAL > or = 60 mg/dl - LOW CARDIOVASCULAR RISK <40 mg/dl - HIGH CARDIOVASCULAR RISK Normal [facility] Comment on above: Performed By: #### C MITRA #### [facility] [address] [address] [address] Sharon Reed LDL CALC NORMAL SEE BELOW Normal [facility] Comment on above: Result Comment: <100 mg/dl OPTIMAL 100 - 129 mg/dl NEAR OR ABOVE OPTIMAL 130 - 159 mg/dl BORDERLINE HIGH 160 - 189 mg/dl HIGH >190 mg/dl VERY HIGH Performed By: #### C MITRA #### [facility] [address] [address] [address] Sharon Reed Triglyceride [Mass/Vol] 89 mg/dL Normal <=150 [facility] Comment on above: Performed By: #### C MITRA #### [facility] [address] [address] [address] Sharon Reed VLDL CALC 17.8 mg/dL Normal [facility] Comment on above: Performed By: #### C MITRA #### [facility] [address] [address] [address] Sharon Reed PROF CHEM 8 (BAS METB)on Anion gap [Moles/Vol] 8.9 mmol/L Normal [facility] Comment on above: Performed By: #### C MITRA #### [facility] [address] [place] [address] Dr. Sharon eRed Calcium [Mass/Vol] 9.3 mg/dL Normal 8.5-10.1 [facility] Comment on above: Performed By: #### C MITRA #### [facility] [address] [place] [address] Dr. Sharon Reed Chloride [Moles/Vol] 103 mmol/L Normal 98-107 [facility] Comment on above: Performed By: #### C MITRA #### [facility] [address] [place] [address] Dr. Sharon Reed CO2 [Moles/Vol] 32.1 mmol/L Critically high 21.0-32.0 [facility] Comment on above: Performed By: #### C MITRA #### [facility] [address] [address] [address] Sharon Reed Creatinine [Mass/Vol] 1.06 mg/dL Critically high 0.55-1.02 [facility] Comment on above: Performed By: #### C MITRA #### [facility] [address] [address] [address] Sharon Reed EGFR-AF SAO TOMEAN >60 Normal >=60 [facility] Comment on above: Performed By: #### C MITRA #### [facility] [address] [address] [address] Sharon Reed EGFR-NON AF SAO TOMEAN 50 mL/min/1.73m2 Critically low >=60 [facility] Comment on above: Performed By: #### C MITRA #### [facility] [address] [address] [address] Sharon Reed Glucose [Mass/Vol] 106 mg/dL Normal 74-106 [facility] Comment on above: Performed By: #### C MITRA #### [facility] [address] [place] [address] Dr. Sharon Reed Potassium [Moles/Vol] 4.0 mmol/L Normal 3.5-5.1 [facility] Comment on above: Performed By: #### C MITRA #### [facility] [address] [address] [address] Sharon Reed Sodium [Moles/Vol] 140 mmol/L Normal 136-145 [facility] Comment on above: Performed By: #### C MITRA #### [facility] [address] [address] [address] Sharon Reed Urea nitrogen [Mass/Vol] 22.0 mg/dL Critically high 7.0-18.0 [facility] Comment on above: Performed By: #### C MITRA #### [facility] [address] [place] [address] Dr. Sharon Reed Urea nitrogen/Creatinine [Mass ratio] 20.8 mg/mg Normal [facility] Comment on above: Performed By: #### C MITRA #### [facility] [address] [place] [address] Dr. Sharon Reed SGOTon 08-18-2021 AST [Catalytic activity/Vol] 20 U/L Normal 15-37 [facility] Comment on above: Performed By: #### C MITRA #### [facility] [address] [place] [address] Dr. Sharon Reed SGPTon 08-18-2021 ALT [Catalytic activity/Vol] 25 U/L Normal 14-59 [facility] Comment on above: Performed By: #### S EDR #### [facility] [address] [place] [address] Dr. Sharon Reed VITAMIN D 25 OHon 08-18-2021 VIT D 25-OH 94.9 ng/mL Normal [facility] Comment on above: Performed By: #### V ITAD #### [facility] [address] [place] [address] Dr. Sharon Reed VIT D RANGES SEE BELOW Normal [facility] Comment on above: Result Comment: <20 ng/mL Vit D deficient 20 - <30 ng/mL Vit D insufficient 30 - 100 ng/mL Vit D sufficient >100 ng/mL Potential Toxicity Performed By: #### V ITAD #### [facility] [address] [place] [address] Dr. Sharon Reed CREATININEon 08-12-2021 Creatinine [Mass/Vol] 1.15 mg/dL Critically high 0.55-1.02 [facility] Comment on above: Performed By: #### C MITRA #### [facility] [address] [place] [address] Dr. Sharon Reed EGFR-AF SAO TOMEAN 55 mL/min/1.73m2 Critically low >=60 [facility] Comment on above: Performed By: #### C MITRA #### [facility] [address] [place] [address] Dr. Sharon Reed EGFR-NON AF SAO TOMEAN 46 mL/min/1.73m2 Critically low >=60 [facility] Comment on above: Performed By: #### C MITRA #### [facility] [address] [address] [address] [facility] 4 mm/hr Normal <=30 [facility] Comment on above: Performed By: #### C MITRA #### [facility] [address] [address] [address] Sharon Reed UA RANDOM W/MICROSCOPICon BACTERIA NONE SEEN Normal NONE SEEN [facility] Comment on above: Performed By: #### S EDR #### [facility] [address] [address] [address] Sharon Reed Bilirubin Ql (U) Negative Normal NEGATIVE [facility] Comment on above: Performed By: #### S EDR #### [facility] [address] [place] [address] Dr. Sharon Reed CAST NONE SEEN Normal NONE SEEN [facility] Comment on above: Performed By: #### S EDR #### [facility] [address] [address] [address] Sharon Reed Clarity (U) CLEAR Normal CLEAR [facility] Comment on above: Performed By: #### S EDR #### [facility] [address] [address] [address] Sharon Reed Color (U) LT. YELLOW Normal YELLOW [facility] Comment on above: Performed By: #### S EDR #### [facility] [address] [address] [address] Sharon Reed Crystals LM Nom (Urine sed) NONE SEEN Normal NONE SEEN [facility] Comment on above: Performed By: #### S EDR #### [facility] Laboratory [address] [place] [address] Dr. Sharon Reed Epithelial cells LM Ql (Urine sed) RARE Normal NONE SEEN /RARE [facility] Comment on above: Performed By: #### S EDR #### [facility] [address] [place] [address] Dr. Sharon Reed Glucose Ql (U) Negative Normal NEGATIVE [facility] Comment on above: Performed By: #### S EDR #### [facility] [address] [address] [address] Sharon Reed Hemoglobin Ql (U) Negative Normal NEGATIVE [facility] Comment on above: Performed By: #### S EDR #### [facility] [address] [address] [address] Sharon Reed Ketones Ql (U) Negative Normal NEGATIVE [facility] Comment on above: Performed By: #### S EDR #### [facility] [address] [address] [address] Sharon Reed LEUKOCYTES Negative Normal NEGATIVE [facility] Comment on above: Performed By: #### S EDR #### [facility] [address] [address] [address] Sharon Reed MUCOUS NONE SEEN Normal NONE SEEN [facility] Comment on above: Performed By: #### S EDR #### [facility] [address] [address] [address] Sharon Reed Nitrite Ql (U) Negative Normal NEGATIVE [facility] Comment on above: Performed By: #### S EDR #### [facility] [address] [address] [address] Sharon Reed pH (U) 5.5 [pH] Normal 5-9 [facility] Comment on above: Performed By: #### S EDR #### [facility] [address] [address] [address] Sharon Reed RBC NONE SEEN Abnormal 0-2 [facility] Comment on above: Performed By: #### S EDR #### [facility] [address] [address] [address] Sharon Reed SPEC GRAVITY 1.010 Normal 1.005-<=1.[address] [facility] Comment on above: Performed By: #### S EDR #### [facility] [address] [place] [address] Dr. Sharon Reed UA PROTEIN Negative Normal NEGATIVE/ TRACE [facility] Comment on above: Performed By: #### S EDR #### [facility] [address] [address] [address] Sharon Reed Urobilinogen Qn (U) 0.2 {Jayla'U}/dL Normal 0.2 - 1. 0 [facility] Comment on above: Performed By: #### S EDR #### [facility] [address] [address] [address] Sharon Reed WBC NONE SEEN Normal NONE SEEN [facility] Comment on above: Performed By: #### S EDR #### [facility] [address] [address] [address] Sharon Reed Encounters Encounter Date Encounter Type Care Provider Facility Start: 05-12-2023 End: 05-12-2023 ambulatory Monika Pineda Facility:[facility] Start: 05-12-2023 End: 05-12-2023 ambulatory MD Tyler Velazquez Work Phone: [facility] Work Phone: Start: 05-12-2023 End: 05-12-2023 Patient encounter procedure MD Tyler Velazquez Work Phone: [facility] [address] Work Phone: Start: 04-12-2023 End: 04-12-2023 ambulatory TYLER VELAZQUEZ Not Available Start: 10-15-2022 End: 10-15-2022 ambulatory Tyler Velazquez Facility:[facility] Start: 10-15-2022 End: 10-15-2022 ambulatory MD Tyler Velazquez Work Phone: [facility] Work Phone: Start: 10-15-2022 End: 10-15-2022 Patient encounter procedure MD Tyler Velazquez Work Phone: [facility] [address] Work Phone: Start: 07-02-2022 End: 07-03-[address] MONIKA PINEDA Facility:[facility] Start: 04-02-2022 End: 04-03-[address] MONIKA PINEDA Facility:[facility] Start: 02-05-2022 End: 02-06-[address] MONIKA PINEDA Facility:[facility] Start: 12-12-2021 End: 12-13-[address] MONIKA PINEDA Facility:[facility] Start: 10-09-2021 End: 10-10-[address] MONIKA PINEDA Facility:[facility] Start: 08-18-2021 End: 08-19-[address] TYLER VELAZQUEZ Facility:[facility] Start: 08-12-2021 End: 08-13-[address] MONIKA PINEDA Facility:[facility] Plan of Treatment Date Care Activity Detail Author Start: 10-15-2022 End: 10-15-2022 [facility] Payers Date Payer Category Payer Self-pay [id number] 1958 Medicare [id number] 1958 Unknown [id number] 1940 Unknown [id number] 2.16.84 [id number] 1941 Unknown [id number] 2.16.84 [id number] 1941 Unknown [id number] 2.16.84 [id number] 1941 Unknown [id number] 2.16.84 [id number] 1941 Unknown [id number] 2.16.84 [id number] 1941 Unknown [id number] 2.16.84 [id number] 1941 Unknown [id number] 2.16.84 [id number] 1941 Unknown [id number] 2.16.84 [id number] Medicare Medicare Outpatient [id number] Unknown [id number] 2.16.8 [id number] Unknown [id number] 2.16.8 [id number] Social History Date Type Detail Facility Tobacco smoking stat [facility] Unknown if ever smoked [facility] Work Phone: Start: 1940 Sex Assigned At Female F [facility] Evaluation note Note Date & Type Note Facility Evaluation note No assessment information availa ble [facility] Work Phone: Summary Purpose Family History No Family History Records FoundNo Family History Records FoundNo Family History Records Found Advance Directives No Advanced Directives Records Found Advance Directive Response Recorded Date/ Time Advance Directives No July 26, 020 3:02pm Advance Directive Response Recorded Date/ Time Advance Directives No July 26 020 2:02pm Additional Source Comments INFORMATION SOURCE (unrecogn ized section and content) DATE CREATED AUTHOR 07/12/2022 [facility] DATE CREATED AUTHOR AUTHOR'S ORGANIZ ATION 04/13/2023 [facility] EPIC DATE CREATED AUTHOR AUTHOR'S ORGANIZ ATION 05/27/2023 [facility] Care Teams (unrecognized sec tion and content) Team Status: Active Member Role Status Dates Tyler Velazquez MD Primary Care Provider Active Team Status: Inactive Member Role Status Dates Tyler Velazquez MD Primary Care Provider Active Monika Pineda MD Attending Provider Active Team Status: Inactive Member Role Status Dates Tyler Velazquez MD Primary Care Provider Active S tart: May 12, 2023 End: May 12, 2023 Monika Pineda MD Attending Provider Active St art: May 12, 2023 End: May 12, 2023 Goals (unrecognized section and content) Goals may be documented in a n alternate sectionGoals may be documented in an alternate section FOR RECORDS PERTAINING TO PATIENTS WHO ARE OR HAVE BEEN ENROLLED IN A CHEMICAL DEPENDENCY/SUBSTANCEABUSE PROGRAM, SOME INFORMATION MAY BE OMITTED. This clinical summary was aggregated from multiple sources. Caution should be exercised in using it in the provision of clinical care. This summary normalizes information from multiple sources, and as a consequence, information in this document may materially change the coding, format and clinical context of patient data. In addition, data may be omitted in some cases. CLINICAL DECISIONS SHOULD BE BASED ON THE PRIMARY CLINICAL RECORDS. [facility] [employer] [facility]. provides no warranty or guarantee of the accuracy or completeness of information in this document.
[2023-08-12 16:09] LABS: Basophils Percent Auto 0.6 % (0.2-2.0); Eosinophils Percent Auto 0.3 % (0.9-7.0); Hematocrit 32.3 % (36.0-48.0); Hemoglobin 10.7 g/dL (12.0-16.0); Lymphocytes Absolute Auto 0.9 10^3/uL (1.2-3.8); Lymphocytes Percent Auto 24.9 % (20.5-60.0); Mean Corpuscular HGB Conc 33.1 g/dL (29.9-35.2); Mean Corpuscular Hemoglobin 31.5 pg (26.7-34.0); Mean Platelet Volume 9.7 fL (9.5-13.5); Monocytes Absolute Auto 0.3 10^3/uL (0.3-0.8); Monocytes Percent Auto 8.1 % (1.7-12.0); Neutrophils Absolute Auto 2.4 10^3/uL (1.4-6.5); Neutrophils Percent Auto 66.1 % (43.0-75.0); Platelet Count 114 10^3/uL (150-450); Red Cell Distribution Width 11.7 % (11.0-15.0); White Blood Count 3.6 10^3/uL (4.0-11.0)
[2023-08-12 16:28] LABS: Erythrocyte Sedimentation Rate 39 mm/hr (<=30)
[2023-08-12 16:32] LABS: Estimated GFR (African America 55 (>=60); Estimated GFR (Non-African Ame 46 (>=60)
== END 2023-08-12 15:47 | disposition home or self-care (01) ==
LOC: LAB 15:48
PROVIDERS: PCP Family Medicine; Visit Provider Internal Medicine Rheumatology
DX: M31.30 Wegener's granulomatosis without renal involvement (principal)
CPT/HCPCS: 36415; 81001; 82565; 85025; 85652

== ENCOUNTER 2023-08-13 15:38 | Outpatient (REF) | payer MEDICARE, OTHER, SELFPAY ==
[2023-08-13 16:07] LABS: Bilirubin Urine NEGATIVE (NEGATIVE); Blood Urine NEGATIVE (NEGATIVE); Clarity Urine CLEAR (CLEAR); Color Urine LT. YELLOW (YELLOW); Glucose Urine UA NEGATIVE (NEGATIVE); Ketones Urine NEGATIVE (NEGATIVE); Leukocyte Esterase Urine NEGATIVE (NEGATIVE); Nitrite Urine NEGATIVE (NEGATIVE); Protein Urine NEGATIVE (NEG/TRACE); Specific Gravity Urine 1.015 (1.005-1.025); Urobilinogen Urine 0.2 EU/dL (0.2-1.0)
[2023-08-13 16:16] LABS: Bacteria Urine NONE SEEN #/HPF (NONE SEEN); Mucus Urine NONE SEEN (NONE SEEN); RBC Urine NONE SEEN #/HPF (0-2); Squamous Epithelial Cell Urine NONE SEEN #/LPF (NONE/RARE); WBC Urine 0-2 #/HPF (NONE SEEN)
[2023-08-13 16:17] LABS: Cast Seen? NONE SEEN #/LPF (NONE SEEN); Crystals Seen? None Seen #/HPF (None Seen)
== END 2023-08-13 15:39 | disposition home or self-care (01) ==
LOC: LAB 15:38
PROVIDERS: PCP Family Medicine; Visit Provider Internal Medicine Rheumatology
DX: M31.30 Wegener's granulomatosis without renal involvement (principal)
CPT/HCPCS: 81001

== ENCOUNTER 2023-11-11 16:29 | Outpatient (OUT) | payer MEDICARE, OTHER, SELFPAY ==
[2023-11-11 17:04] LABS: Hematocrit 36.3 % (36.0-48.0); Hemoglobin 11.9 g/dL (12.0-16.0); Mean Corpuscular HGB Conc 32.8 g/dL (29.9-35.2); Mean Corpuscular Hemoglobin 31.2 pg (26.7-34.0); Mean Corpuscular Volume 95.3 fL (81.0-99.0); Platelet Count 142 10^3/uL (150-450); Red Blood Count 3.81 10^6/uL (4.20-5.40); Red Cell Distribution Width 11.5 % (11.0-15.0); White Blood Count 4.8 10^3/uL (4.0-11.0)
[2023-11-11 17:05] LABS: Basophils Percent Auto 0.4 % (0.2-2.0); Eosinophils Percent Auto 0.6 % (0.9-7.0); Lymphocytes Absolute Auto 1.3 10^3/uL (1.2-3.8); Lymphocytes Percent Auto 26.4 % (20.5-60.0); Monocytes Absolute Auto 0.3 10^3/uL (0.3-0.8); Monocytes Percent Auto 7.1 % (1.7-12.0); Neutrophils Absolute Auto 3.1 10^3/uL (1.4-6.5); Neutrophils Percent Auto 65.5 % (43.0-75.0)
[2023-11-11 17:23] LABS: C Reactive Protein <0.50 mg/dL (<=0.50); Estimated GFR (African America 53 (>=60); Estimated GFR (Non-African Ame 44 (>=60)
[2023-11-11 17:33] LABS: Bilirubin Urine NEGATIVE (NEGATIVE); Blood Urine NEGATIVE (NEGATIVE); Clarity Urine CLEAR (CLEAR); Color Urine LT. YELLOW (YELLOW); Glucose Urine UA NEGATIVE (NEGATIVE); Ketones Urine NEGATIVE (NEGATIVE); Leukocyte Esterase Urine NEGATIVE (NEGATIVE); Nitrite Urine NEGATIVE (NEGATIVE); Protein Urine NEGATIVE (NEG/TRACE); Specific Gravity Urine 1.015 (1.005-1.025); Urobilinogen Urine 0.2 EU/dL (0.2-1.0)
[2023-11-11 17:35] LABS: Erythrocyte Sedimentation Rate 41 mm/hr (<=30)
[2023-11-11 17:49] LABS: Bacteria Urine TRACE #/HPF (NONE SEEN); Crystals Seen? None Seen #/HPF (None Seen); Mucus Urine NONE SEEN (NONE SEEN); RBC Urine NONE SEEN #/HPF (0-2); Squamous Epithelial Cell Urine NONE SEEN #/LPF (NONE/RARE); WBC Urine NONE SEEN #/HPF (NONE SEEN)
[2023-11-11 17:50] LABS: Cast Seen? NONE SEEN #/LPF (NONE SEEN); Urine Culture Indicated NO
[2023-11-15 21:07] LABS: Anti-MPO Antibodies <0.2 units (0.0-0.9); Anti-PR3 Antibodies <0.2 units (0.0-0.9); Cytoplasmic (C-ANCA) <1:20 titer (Neg:<1:20); Perinuclear (P-ANCA) <1:20 titer (Neg:<1:20)
== END 2023-11-11 16:30 | disposition home or self-care (01) ==
PROVIDERS: PCP Family Medicine; Visit Provider Internal Medicine Rheumatology
DX: D72.819 Decreased white blood cell count, unspecified (principal); R76.0 Raised antibody titer; R63.4 Abnormal weight loss
CPT/HCPCS: 36415; 81001; 82565; 83516; 85025; 85652; 86037; 86140

== ENCOUNTER 2024-10-09 15:01 | Outpatient (OUT) | payer MEDICARE, OTHER, SELFPAY ==
[2024-10-09 16:02] LABS: Alanine Aminotransferase 24 U/L (14-59); Albumin Globulin Ratio 1.1; Albumin Level 3.7 g/dL (3.4-5.0); Alkaline Phosphatase 93 U/L (46-116); Anion Gap 13.1; Aspartate Amino Transferase 21 U/L (15-37); Blood Urea Nitrogen 30.0 mg/dL (7.0-18.0); Calcium 9.3 mg/dL (8.5-10.1); Carbon Dioxide 30.4 mmol/L (21.0-32.0); Chloride 104 mmol/L (98-107); Cholesterol 205 mg/dL (<=200); Estimated GFR (African America 49 (>=60 mL/min/1.73m^2); Estimated GFR (Non-African Ame 40 (>=60 mL/min/1.73m^2); Globulin 3.3 g/dL; Glucose 102 mg/dL (74-106); HDL Cholesterol 88 mg/dL (40-60); Potassium 4.5 mmol/L (3.5-5.1); Sodium 143 mmol/L (136-145); Total Protein 7.0 g/dL (6.4-8.2); Triglycerides 94 mg/dL (<=150); VLDL CHOLESTEROL 18.8 mg/dL
[2024-10-09 16:03] LABS: Hematocrit 33.7 % (36.0-48.0); Hemoglobin 11.3 g/dL (12.0-16.0); Immature Granulocytes Abs Auto 0.02 10^3/uL (0.00-0.03); Immature Granulocytes Pct Auto 0.5 % (0.0-0.5); Lymphocytes Absolute Auto 1.2 10^3/uL (1.2-3.8); Mean Corpuscular HGB Conc 33.5 g/dL (29.9-35.2); Mean Corpuscular Hemoglobin 31.1 pg (26.7-34.0); Mean Corpuscular Volume 92.8 fL (81.0-99.0); Platelet Count 137 10^3/uL (150-450); Red Blood Count 3.63 10^6/uL (4.20-5.40); White Blood Count 4.1 10^3/uL (4.0-11.0)
== END 2024-10-09 15:02 | disposition home or self-care (01) ==
LOC: LAB 15:04
PROVIDERS: PCP Family Medicine; Visit Provider Family Medicine
DX: E78.5 Hyperlipidemia, unspecified (principal); Z79.899 Other long term (current) drug therapy; E55.9 Vitamin D deficiency, unspecified
CPT/HCPCS: 36415; 80048; 80061; 80076; 82306; 85025